=== PATIENT | male | born 1980 | race Caucasian/White ===

== ENCOUNTER 2019-04-20 09:36 | Emergency (ER) | payer OTHER ==
[~2019-04-20] VITALS: Ht 177.8 cm; Wt 93.0 kg
[2019-04-20 09:50] VITALS: BP 146/103
--- NOTE | 2019-04-20 09:50 | NUR ---
ED Nurse Note: Patient arrived to ED by car from home c/o 11/23 headache for 2 weeks. Patient states he had a cold about 3 weeks ago and still has some chest congestion. Patient is sensitive to light and wakes up at 4am d/t not being able to sleep from the headache. Patient has been taking Advil Liquidgels with no relief. Patient AxO x 4, VSS. No s/s of acute distress. Bed in lowest position.
[2019-04-20] MEDS ORDERED: Metoclopramide 10mg/2ml Inj IVP ONE (10:15)
[2019-04-20] MEDS ORDERED: Ketorolac 30mg Inj IV ONE (10:15)
[2019-04-20] MEDS ORDERED: DiphenhydrAMINE 50mg/ml Inj IVP ONE (10:15)
--- NOTE | 2019-04-20 10:27 | Emergency Room Report ---
History of Present Illness General Chief Complaint: Headache Source: Patient Present Illness HPI 38-year-old male presents ED complaining of headache. Notes pain behind both eyes and frontal. Throbbing, 8 out of 10, nonradiating. Comes and goes for the last 3 weeks. Takes [id number] medication with some relief but then it returns. Denies neck stiffness. Denies nausea or vomiting. Denies blurry vision. States he was having some viral symptoms a few weeks ago which have since resolved. No other aggravating relieving factors. Denies any other associated symptoms Allergies: Coded Allergies: No Known Allergies (Unverified , 04/20/19) Patient History Past Medical History: none Past Surgical History: none Pertinent Family History: none Social History: Denies: smoking, alcohol use, drug use Immunizations: UTD Reviewed Nursing Documentation: PMH: Agreed; PSxH: Agreed Nursing Documentation-PMH Past Medical History: No Stated History Review of Systems All Other Systems: negative except mentioned in HPI Physical Exam Vital Signs Date Time Temp Pulse Resp B/P (MAP) Pulse Ox O2 Delivery O2 Flow Rate FiO2 04/20/19 09:42 97.5 103 16 146/103 (117) 98 Room Air Sp02 EP Interpretation: reviewed, normal General Appearance: no apparent distress, alert, GCS 15, non-toxic Head: normocephalic, atraumatic Eyes: bilateral eye normal inspection, bilateral eye PERRL, bilateral eye EOMI , bilateral eye visual acuity ENT: hearing grossly normal, normal pharynx, no angioedema, normal voice Neck: full range of motion, supple, no meningismus, supple/symm/no masses Respiratory: chest non-tender, lungs clear, normal breath sounds, speaking full sentences Cardiovascular #1: regular rate, rhythm, no edema Cardiovascular #2: 2+ carotid (R), 2+ carotid (L), 2+ radial (R), 2+ radial (L) , 2+ dorsalis pedis (R), 2+ dorsalis pedis (L) Gastrointestinal: normal bowel sounds, non tender, soft, non-distended, no guarding, no rebound Rectal: deferred Genitourinary: normal inspection, no CVA tenderness Musculoskeletal: back normal, normal range of motion, gait/station normal, non- tender Neurologic: alert, motor strength/tone normal, 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, oriented x3, sensory intact, responsive, speech normal Psychiatric: judgement/insight normal, memory normal, mood/affect normal, no suicidal/homicidal ideation Reflexes: 3+ bicep (R), 3+ bicep (L), 3+ tricep (R), 3+ tricep (L), 3+ knee (R) , 3+ knee (L) Skin: no rash Lymphatic: no adenopathy Medical Decision Making Diagnostic Impression: Primary Impression: Headache Qualified Codes: R51 - Headache Additional Impression: Elevated LFTs ER Course Hospital Course 38-year-old male presents to ED complaining of headaches x 3 weeks Differential diagnoses include: tension headache, migraine, dehydration, intracranial bleed Clinical course Patient placed on stretcher. After initial history and physical I ordered labs , IV fluids, Reglan, Toradol and Benadryl. Labs reviewed- electrolytes okay, no leukocytosis, mild LFT elevation Upon reassessment patient states pain has improved. Vitals stable. No focal neurological deficits. I discussed findings with patient. Discussed the mild transaminitis. Patient states he does drink every day. I encouraged him to follow-up with a PMD. I will provide referrals. Safe for discharge i. I feel this is a highly complex case requiring extensive working including EKG/Rhythm strip, Xray/CT/US, Blood/urine lab work, repeat exams while in ED, and administration of strong opiates/narcotics for pain control, admission to hospital or close patient follow up. Diagnosis - headache, elevated LFTs stable and discharged to home with Rx Motrin, reglan. f/up with PMD. return to ED if symptoms recur/worsen. Labs Test 04/20/19 10:30 White Blood Count 8.7 K/UL (4.8-10.8) Red Blood Count 5.74 M/UL (4.70-6.10) Hemoglobin 19.2 G/DL (14.2-18.0) Hematocrit 54.4 % (42.0-52.0) Mean Corpuscular Volume 95 FL (80-99) Mean Corpuscular Hemoglobin 33.5 PG (27.0-31.0) Mean Corpuscular Hemoglobin Concent 35.2 G/DL (32.0-36.0) Red Cell Distribution Width 10.5 % (11.6-14.8) Platelet Count 378 K/UL (150-450) Mean Platelet Volume 6.9 FL (6.5-10.1) Neutrophils (%) (Auto) 48.3 % (45.0-75.0) Lymphocytes (%) (Auto) 39.9 % (20.0-45.0) Monocytes (%) (Auto) 8.1 % (1.0-10.0) Eosinophils (%) (Auto) 2.4 % (0.0-3.0) Basophils (%) (Auto) 1.4 % (0.0-2.0) Sodium Level 144 MMOL/L (136-145) Potassium Level 3.4 MMOL/L (3.5-5.1) Chloride Level 105 MMOL/L (98-107) Carbon Dioxide Level 26 MMOL/L (21-32) Anion Gap 13 mmol/L (5-15) Blood Urea Nitrogen 7 mg/dL (7-18) Creatinine 0.8 MG/DL (0.55-1.30) Estimat Glomerular Filtration Rate > 60 mL/min (>60) Glucose Level 107 MG/DL (74-106) Calcium Level 8.2 MG/DL (8.5-10.1) Total Bilirubin 1.0 MG/DL (0.2-1.0) Aspartate Amino Transf (AST/SGOT) 175 U/L (15-37) Alanine Aminotransferase (ALT/SGPT) 156 U/L (12-78) Alkaline Phosphatase 160 U/L (46-116) Total Protein 7.9 G/DL (6.4-8.2) Albumin 3.3 G/DL (3.4-5.0) Globulin 4.6 g/dL Albumin/Globulin Ratio 0.7 (1.0-2.7) Last Vital Signs Date Time Temp Pulse Resp B/P (MAP) Pulse Ox O2 Delivery O2 Flow Rate FiO2 04/20/19 09:50 97.5 16 146/103 98 Room Air 04/20/19 09:42 103 Status: improved Disposition: HOME, SELF-CARE Condition: Stable Scripts Metoclopramide Hcl* (REGLAN*) 10 Mg Tablet 10 MG ORAL THREE TIMES A DAY for 5 Days, TAB Prov: Jose Man MD 04/20/19 Ibuprofen* (MOTRIN*) 600 Mg Tablet 600 MG ORAL Q8H PRN for For Pain, #30 TAB 0 Refills Prov: Jose Man MD 04/20/19 Referrals: ADELITA BARBOSA,REFERRING (PCP) Jose Man MD Apr 20, 2019 10:27
[2019-04-20 11:17] LABS: ANION GAP 13 mmol/L (5-15); BLOOD UREA NITROGEN 7 mg/dL (7-18); CALCIUM 8.2 MG/DL (8.5-10.1); CARBON DIOXIDE 26 MMOL/L (21-32); CHLORIDE 105 MMOL/L (98-107); CREATININE 0.8 MG/DL (0.55-1.30); POTASSIUM 3.4 MMOL/L (3.5-5.1); SODIUM 144 MMOL/L (136-145)
[2019-04-20 11:18] LABS: BASOPHILS % (AUTO) 1.4 % (0.0-2.0); EOSINOPHILS % (AUTO) 2.4 % (0.0-3.0); HEMATOCRIT 54.4 % (42.0-52.0); LYMPHOCYTES % (AUTO) 39.9 % (20.0-45.0); MEAN CORPUSCULAR VOLUME 95 FL (80-99); MONOCYTES % (AUTO) 8.1 % (1.0-10.0); NEUTROPHILS % (AUTO) 48.3 % (45.0-75.0); PLATELET COUNT 378 K/UL (150-450); RED BLOOD COUNT 5.74 M/UL (4.70-6.10); RED CELL DISTRIBUTION WIDTH 10.5 % (11.6-14.8); WHITE BLOOD COUNT 8.7 K/UL (4.8-10.8)
[2019-04-20 11:21] LABS: HEMOGLOBIN 19.2 G/DL (14.2-18.0)
[2019-04-20 11:27] LABS: ALANINE AMINOTRANSFERASE 156 U/L (12-78); ALBUMIN 3.3 G/DL (3.4-5.0); ALBUMIN/GLOBULIN RATIO 0.7 (1.0-2.7); ALKALINE PHOSPHATASE 160 U/L (46-116); ASPARTATE AMINO TRANSFERASE 175 U/L (15-37)
[2019-04-20] MEDS ORDERED: IBUPROFEN600 MG ORAL (11:40)
[2019-04-20] MEDS ORDERED: REGLAN10 MG ORAL (11:40)
[2019-04-20 11:44] VITALS: BP 146/103
--- NOTE | 2019-04-20 11:44 | NUR ---
ED DISCHARGE NOTE: Patient cleared for DC by Dr. Man. Patient AxO x 4, VSS. Patient verbalized understanding of DC instructions. Patient IV removed without complication. ID band removed. Patient ambulates with steady gait and took all belongings.
== END 2019-04-20 11:44 | disposition home or self-care (01) ==
LOC: EMR 09:55
DX: R51 Headache (principal); R94.5 Abnormal results of liver function studies
CPT/HCPCS: 36415; 80053; 85025; 96361; 96374; 96375; J1200; J1885; J2765; J7030; Z7502; 99284